=== PATIENT | female | born 1980 | race Caucasian/White ===

== ENCOUNTER → 2021-02-19 11:24 | Outpatient (CLI) | payer OTHER, SELFPAY ==
--- NOTE | ~2021-02-19 | US_ITS ---
EXAMINATION: US retroperitoneal comp DATE: 02/19/2021 11:56 INDICATION: Acute renal insufficiency TECHNIQUE: Multiple ultrasound grayscale images of the kidneys were obtained. COMPARISON: None. FINDINGS: The right kidney measures 10.3 x 4.1 x 5.2 cm. The left kidney measures 10.9 x 5.2 x 5.2 cm. The kidn eys demonstrate normal echogenicity. There is no hydronephrosis in either kidney. No stones identifi ed. The bladder is normal. Incidentally noted 3.0 cm anechoic right adnexal cyst. IMPRESSION: 1. Normal kidneys without hydronephrosis. Line 2. 3.0 cm right adnexal cyst. Reviewed, dictated and finalized at location A.
== END ==
PROVIDERS: PCP Student in an Organized Health Care Education/Training Program; Visit Provider Student in an Organized Health Care Education/Training Program
DX: R74.8 Abnormal levels of other serum enzymes (principal); R93.89 Abnormal findings on diagnostic imaging of other specified body structures
CPT/HCPCS: 76770

== ENCOUNTER → 2022-06-02 13:15 | Outpatient (CLI) | payer OTHER, SELFPAY ==
--- NOTE | ~2022-06-02 | CT_ITS ---
CTA chest abdomen pelvis EXAMINATION: CTA chest abdomen DATE: 06/02/2022 13:59 INDICATION: Family history of thoracic aortic aneurysm, chest tightness TECHNIQUE: Computed tomographic angiography (CTA) of the chest and abdomen was performed with 100 mL Omnipque-350 intravenous contrast. Maximum intensity projection 3D-reconstructions of the aorta and o ther arteries were constructed by the technologist on a separate workstation. The dose-length product (DLP) was 391.78 mGy-cm. Automated exposure control and iterative reconstruction technique were empl oyed. COMPARISON: None. FINDINGS: CHEST CTA: There is no aneurysm or dissection of the thoracic aorta. The ascending aorta measures 3.3 cm at the level of the main pulmonary artery an 2.8 cm at the sinuses of Valsalva the lungs are free of acute o pacities. No pleural effusion or pneumothorax. No pathologically enlarged thoracic lymph nodes are id entified. The heart size is normal. Bilateral saline breast implants are noted. ABDOMEN CTA: There is no aneurysm or dissection of the abdominal aorta. The celiac axis, superior mesenteric arter y, and inferior mesenteric artery are normal at their origins. There are single renal arteries. The l iver, spleen, pancreas, gallbladder, and adrenal glands are normal. The kidneys are unremarkable. The re are no pathologically enlarged abdominal lymph nodes. There is no free intraperitoneal gas or evid ence of bowel obstruction. IMPRESSION: 1. No aneurysm or dissection of the thoracic or abdominal aorta. Reviewed, dictated and finalized at location A.
[2022-06-04 10:35] LABS: Estimated Glomerular Filt Rate 50
== END ==
PROVIDERS: PCP Student in an Organized Health Care Education/Training Program
DX: Z82.49 Family history of ischemic heart disease and other diseases of the circulatory system (principal)
CPT/HCPCS: 36415; 71275; 74175; 82565; Q9967

== ENCOUNTER → 2023-01-25 12:31 | Outpatient (CLI) | payer OTHER, SELFPAY ==
--- NOTE | ~2023-01-25 | MM_ITS ---
EXAMINATION: MM scrn saroj implant BI w christos HISTORY: Baseline screening mammogram TECHNIQUE: Craniocaudal and mediolateral oblique 3-D tomosynthesis images with implant displacement a nd synthetic 2-D images were generated. Craniocaudal and mediolateral oblique views of the breasts wi thout implant displacement were obtained using full field digital mammography. CAD analysis was submi tted and interpreted. COMPARISON: None, baseline BREAST PARENCHYMAL COMPOSITION: The breasts are heterogeneously dense, which may obscure small masses . FINDINGS: There is no evidence of suspicious mass, calcification, or architectural distortion to sugg est malignancy in either breast. IMPRESSION: 1. No mammographic evidence of malignancy. 2. Recommend routine screening mammography in one year. BI-RADS Category 1: Negative Reviewed, dictated and finalized at location A.
== END ==
PROVIDERS: PCP Student in an Organized Health Care Education/Training Program; Visit Provider Nurse Practitioner
DX: Z12.31 Encounter for screening mammogram for malignant neoplasm of breast (principal)
CPT/HCPCS: 77063; 77067